=== PATIENT | female | born 1965 | race Hispanic/Latino ===

== ENCOUNTER → 2019-12-24 | Outpatient (CLI) | payer OTHER ==
--- NOTE | 2019-12-24 17:48 | Diagnostic Imaging Report ---
EXAMINATION: CHEST 2 VIEWS INDICATION: Chronic obstructive pulmonary disease COMPARISON: None FINDINGS: PA and lateral views TUBES and LINES: None. . LUNGS/PLEURA: Lungs are well inflated. There is no evidence of pneumonia or pulmonary edema. Nodular opacity in the right lung base likely a calcified granuloma. There is no pleural effusion or pneumothorax. HEART AND MEDIASTINUM: The cardiomediastinal silhouette is unremarkable. BONES AND SOFT TISSUES: No acute osseous lesion. Soft tissues are unremarkable. UPPER ABDOMEN: No free air under the diaphragm. IMPRESSION: No acute thoracic abnormality. Signed by: Enrique Almanza MD on 12/24/2019 5:45 PM
== END ==
LOC: RAD 16:33
PROVIDERS: ATTEND Urology
DX: J44.9 Chronic obstructive pulmonary disease, unspecified (principal)
CPT/HCPCS: 71046

== ENCOUNTER → 2022-07-21 | Outpatient (CLI) | payer OTHER ==
[~2022-07-21] MED LIST: IOPAMIDOL 370 MG/ML 100 ML INFUS..BTL INJ ONE
[2022-07-21 08:41] LABS: CREATININE, SERUM 0.6 mg/dL (0.57-1.11)
== END ==
LOC: CT 07:26
PROVIDERS: ATTEND Nurse Practitioner
DX: R10.33 Periumbilical pain (principal); R19.00 Intra-abdominal and pelvic swelling, mass and lump, unspecified site; K63.5 Polyp of colon
CPT/HCPCS: 36415; 74177; 82565; 84520; Q9967